=== PATIENT | female | born 1960 | race Caucasian/White ===

== ENCOUNTER 2018-12-23 13:29 | Emergency (ER) | payer OTHER ==
--- OUTSIDE RECORDS SUMMARY | 2018-12-23 13:43 | XMS REPORT | Summary of Care ---
:1960 Author Organization [facility] Address [address] [address] Care Team Providers Name Role Phone None, [place] Primary Care Provider Unavailable Encounter Details Date Type Department Care Team Description 11/08/2018 Hospital Encounter Brian Mckay [facility] Outpatient [address] [address] Allergies Active Allergy Reactions Severity Noted Date Comments Seasonal Other 06/21/2018 Dust mold foods animals Sulfa Antibiotics Rash 06/21/2018 documented as of this encounter (statuses as of 11/10/2018) Medications Medication Sig Dispensed Refills Start Date End Date Status cyclobenzaprine Take 1 Tab by 30 Tab 0 03/30/2018 Active (FLEXERIL) 10 MG Oral mouth THREE TabIndications: Strain of TIMES DAILY neck muscle, initial NEEDED (for encounter neck strain). estradiol (VIVELLE) 0.1 Place 1 Patch 24 Patch 3 06/21/2018 Active MG/24HR Transdermal PATCH onto skin 2 BIWEEKLYIndications: times per week Menopause at bedtime. buPROPion (WELLBUTRIN) 75 Take 1 Tab by 180 Tab 3 06/21/2018 Active MG Oral TabIndications: mouth TWICE Depression, unspecified DAILY. depression type Losartan Potassium 100 MG Take 1 Tab by 90 Tab 3 07/13/2018 Active Oral Tab mouth DAILY. Progesterone Micronized Take by mouth. 0 Active 200 MG Oral Cap documented as of this encounter (statuses as of 11/10/2018) Active Problems No known active problemsdocumented as of this encounter (statuses as of 2018) Immunizations Name Administration Dates Next Due Hepatitis B Vaccine Adult 12/20/2017 Influenza (IM) Preservative Free 12/20/2017 documented as of this encounter Social History Tobacco Use Types Packs/Day Years Used Date Never Smoker Smokeless Tobacco: Never Used Sex Assigned at Date Recorded Not on file Job Start Date Occupation Industry Not on file Not on file Not on file Travel History Travel Start Travel End No recent travel history available. 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 Debbie Calero CRNP [address] [place] [address] [phone] Name Type Priority Associated Diagnoses Date/Time MAMMO SCREENING Imaging Routine Visit for screening 11/08/2018 5:29 PM TOMOSYNTHESIS BILATERAL mammogram EDT Name Type Priority Associated Diagnoses Order Schedule MAMMO SCREENING Imaging Routine Visit for screening 1 Occurrences starting TOMOSYNTHESIS BILATERAL mammogram 11/08/2018 until 11/08/2018 Health Maintenance Due Date Last Done Comments DEPRESSION SCREENING 1974 DIABETES SCREENING 1980 LIPID DISORDER SCREENING 1980 COLONOSCOPY SCREENING 2012 ZOSTER IMMUNIZATION SERIES 2012 (1 of 2) MAMMOGRAM (SCREENING) 11/05/2018 11/05/2017, 11/05/2017, 10/12/2016, Additional history exists INFLUENZA VACCINE (#1) 2018 12/20/2017 PAP SMEAR 06/21/2021 06/21/2018 HEPATITIS C SCREENING Completed 04/13/2018 HIV SCREENING Completed 04/13/2018 HPV IMMUNIZATION SERIES Aged Out No longer eligible based on patient's age to complete this topic MENINGOCOCCAL VACCINE IMM Aged Out No longer eligible based on patient's age to complete this topic PNEUMOCOCCAL 0-64 YRS Aged Out No longer eligible based on patient's age to complete this topic documented as of this encounter Results Not on filedocumented in this encounter Visit Diagnoses Diagnosis Visit for screening mammogram Other screening mammogram documented in this encounter Insurance Payer Benefit Plan / Subscriber ID Effective Dates Phone Address Type Group BCBS N[place] BCBS NATIONAL xxxxxxxxxxxxx 2017-Present Blue Cross/Blue Shield documented as of this encounter
--- OUTSIDE RECORDS SUMMARY | 2018-12-23 13:43 | XMS REPORT | Continuity of Care Document ---
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 Problems Active Problems Provider Date Plantar fascial fibromatosis Santiago Prado MD Onset: 11/11/2018 Social History Type Date Description Comments Sex Unknown ETOH Use Occasionally consumes alcohol Tobacco Use Start: Unknown Patient has never smoked Smoking Status Reviewed: 11/11/18 Patient has never smoked Exercise Type/Frequency Exercises sporadically Allergies, Adverse Reactions, Alerts Active Allergies Reaction Severity Comments Date Sulfa Antibiotics 11/11/2018 Medications Active Medications SIG Qnty Indications Ordering Provider Date Vivelle-Dot Unknown 0.1mg/24HR Patches Biweek Prometrium Unknown 200mg Capsules Losartan Potassium Unknown 100mg Tablets Bupropion HCL Unknown 75mg Tablets Immunizations Description No Information Available Vital Signs Date Vital Result Comment 11/11/2018 3:26pm Height 65 inches 5'5" Weight 163.00 lb Heart Rate 68 /min BP Systolic 130 mmHg BP Diastolic 76 mmHg BMI (Body Mass Index) 27.1 kg/m2 Results Description No Information Available Procedures Description No Information Available Medical Devices Description No Information Available Encounters Type Date Location Provider Dx Diagnosis Office Visit 11/11/2018 [facility] Santiago Prado M72.2 Plantar fascial 3:[facility] fib[facility]atosis Assessments Date Code Description Provider 11/11/2018 [id number] Plantar fascial fibromatosis Santiago Prado MD 08/16/2018 Z02.1 Encounter for pre-employment examination Mau Al MD 08/16/2018 Z02.83 Encounter for blood-alcohol and blood-drug test Mau Al MD Plan of Treatment Future Appointment(s):01/13/2019 3:30 pm - Santiago Prado MD at [facility].11/11/2018 - Santiago Prado, MDM72.2 Plantar fascial fibromatosisNew Therapy:Physical TherapyFollow up:Follow Up: 2 months as needed Functional Status Description No Information Available Mental Status Description No Information Available Referrals Description No Information Available
[2018-12-23 14:06] VITALS: BP 132/86
--- NOTE | 2018-12-23 14:16 | UC ---
Minor Trauma HPI - HPI Summary HPI Summary: SHE slipped on water in the surgical suite and fell onto her right buttock. She caught some of her weight with her right arm. This happened about 1050 this morning. Since that time she's gradually stiffened up and developed pain in her right shoulder. She minimizes it and reports no weakness or deficits. - History of Current Complaint Chief Complaint: UCTrauma Stated Complaint: FELL MINOR TRAUMA TO RIGHT SIDE Time Seen by Provider: 12/23/18 14:07 Hx Obtained From: Patient Onset/Duration: Sudden Onset Onset Of Pain: Immediate Severity Initially: Mild Severity Currently: Moderate Pain Intensity: 5 Mechanism Of Injury: Fall From A Standing Position Aggravating Factor(s): Movement Alleviating Factor(s): Nothing Associated Signs And Symptoms: Negative: Loss Of Consciousness, Ecchymosis, Swelling - Allergies/Home Medications Allergies/Adverse Reactions: Allergies Allergy/AdvReac Type Severity Reaction Status Date / Time Sulfa (Sulfonamide Allergy Rash Verified 12/23/18 13:56 Antibiotics) Home Medications: Home Medications Estradiol [Vivelle-Dot] 1 mg TD 12/23/18 [History] Ibuprofen TAB* [Motrin TAB* 800 MG] 800 mg PO ONCE 12/23/18 [History Confirmed 12/23/18] Losartan TAB* [Cozaar TAB*] 100 mg PO DAILY 12/23/18 [History Confirmed 12/23/18 ] Multivitamin [Multivitamins] 1 cap PO DAILY 12/23/18 [History Confirmed 12/23/18 ] Progesterone, Micronized [Progesterone] 200 mg PO DAILY 12/23/18 [History Confirmed 12/23/18] buPROPion TAB* [Wellbutrin TAB*] 75 mg PO DAILY 12/23/18 [History Confirmed 07/08] PMH/Surg Hx/FS Hx/Imm Hx Previously Healthy: Yes Cardiovascular History: Hypertension - Surgical History Surgical History: Yes Surgery Procedure, Year, and Place: uterine ablation 2009. R varicose vein surgery 2011 - Social History Alcohol Use: Rare Substance Use Type: None Smoking Status (MU): Never Smoked Tobacco Review of Systems All Other Systems Reviewed And Are Negative: Yes Constitutional: Positive: Negative Motor: Positive: Negative Neurovascular: Positive: Negative Musculoskeletal: Positive: Decreased ROM Neurological: Positive: Negative Physical Exam - Summary Physical Exam Summary: She is nontoxic in appearance with stable vitals Triage Information Reviewed: Yes Appearance: Well-Appearing Vital Signs: Initial Vital Signs Temp 97.8 F 12/23/18 13:59 Pulse 64 12/23/18 13:59 Resp 16 12/23/18 13:59 BP 132/86 12/23/18 13:59 Pulse Ox 100 12/23/18 13:59 Vital Signs Reviewed: Yes Eye Exam: Normal ENT Exam: Normal Neck: Positive: Supple, Nontender Respiratory Exam: Normal Respiratory: Positive: Lungs clear, Normal breath sounds, No respiratory distress Cardiovascular: Positive: RRR Abdominal Exam: Normal Musculoskeletal Exam: Other - She is tender in her trapezius area. She is nontender to isolating the supraspinatus. She has full range of motion of the shoulder. Neurological Exam: Normal Psychological Exam: Normal Skin Exam: Normal Minor Trauma Course/Dx - Course Course Of Treatment: I think she is going to be sore. I recommended ibuprofen and rest. She wants to work tomorrow and I think it's okay if she can tolerate it. - Differential Dx/Diagnosis Provider Diagnosis: Right shoulder strain Discharge ED - Sign-Out/Discharge Documenting (check all that apply): Patient Departure All imaging exams completed and their final reports reviewed: No Studies - Discharge Plan Condition: Stable Disposition: HOME Patient Education Materials: Shoulder Sprain (ED) Forms: *Work Release Referrals: No Primary Care Phys,NOPCP [Primary Care Provider] - - Billing Disposition and Condition Condition: STABLE Disposition: Home
== END 2018-12-23 14:20 | disposition home or self-care (01) ==
LOC: UCEAST 13:29
DX: S46.911A Strain of unspecified muscle, fascia and tendon at shoulder and upper arm level, right arm, initial encounter (principal); I10 Essential (primary) hypertension; Z88.2 Allergy status to sulfonamides; Z79.899 Other long term (current) drug therapy; W01.0XXA Fall on same level from slipping, tripping and stumbling without subsequent striking against object, initial encounter; Y92.234 Operating room of hospital as the place of occurrence of the external cause
CPT/HCPCS: 99201; G0463

== ENCOUNTER 2019-01-20 11:59 | Emergency (ER) | payer OTHER ==
--- OUTSIDE RECORDS SUMMARY | 2019-01-20 12:15 | XMS REPORT | Continuity of Care Document ---
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 Problems Active Problems Provider Date Plantar fascial fibromatosis Santiago Prado MD Onset: 11/11/2018 Social History Type Date Description Comments Sex Unknown ETOH Use Occasionally consumes alcohol Tobacco Use Start: Unknown Patient has never smoked Smoking Status Reviewed: 12/27/18 Patient has never smoked Exercise Type/Frequency Exercises sporadically Allergies, Adverse Reactions, Alerts Active Allergies Reaction Severity Comments Date Sulfa Antibiotics 11/11/2018 Medications Active Medications SIG Qnty Indications Ordering Provider Date Diclofenac Sodium take 1 by mouth 30tabs M25.511 Lin Zuniga MD 2018 75mg twice a day as Tablets DR needed for pain Vivelle-Dot Unknown 0.1mg/24HR Patches Biweek Prometrium Unknown 200mg Capsules Losartan Potassium 1 tablet by Unknown mouth daily 100mg Tablets Bupropion HCL 1 tablet by Unknown 75mg mouth daily Tablets Vitamin C ER 1 by mouth every Unknown 500mg day Capsules ER Vitamin D3 one every daily Unknown 125mcg (5000 [address]) Capsules Immunizations Description No Information Available Vital Signs Date Vital Result Comment 12/27/2018 3:46pm Height 65.5 inches 5'5.50" Weight 162.00 lb Heart Rate 64 /min BP Systolic Sitting 134 mmHg BP Diastolic Sitting 86 mmHg Body Temperature 98.9 F Pain Level 7 BMI (Body Mass Index) 26.5 kg/m2 11/11/2018 3:26pm Height 65 inches 5'5" Weight 163.00 lb Heart Rate 68 /min BP Systolic 130 mmHg BP Diastolic 76 mmHg BMI (Body Mass Index) 27.1 kg/m2 Results Description No Information Available Procedures Description No Information Available Medical Devices Description No Information Available Encounters Type Date Location Provider Dx Diagnosis Office Visit 12/27/2018 [facility] Lin Zuniga MD M25.511 Pain in right 3:15p at [place] shoulder M75.41 Impingement syndrome of right shoulder Office Visit 11/11/2018 Diana Prado M72.2 Plantar fascial 3:00p [facility] [place] Assessments Date Code Description Provider 12/27/2018 M25.511 Pain in right shoulder Lin Zuniga MD 12/27/2018 M75.41 Impingement syndrome of right shoulder Lin Zuniga MD 11/11/2018 M72.2 Plantar fascial fibromatosis Santiago Prado MD 08/16/2018 Z02.1 Encounter for pre-employment examination Mau Al MD 08/16/2018 Z02.83 Encounter for blood-alcohol and blood-drug test Mau Al MD Plan of Treatment Future Appointment(s):01/13/2019 3:30 pm - Santiaog Prado MD at [facility] at Kwitjh3612/27/2018 - Lin Zuniga MDM25.511 Pain in right shoulderNew Medication:Diclofenac Sodium 75 mg - take 1 by mouth twice a day as needed for painNew Xrays:Shoulder Right 2+ VWS, Ordered: 12/27/18MRI Shoulder Right W/O, Ordered: 12/27/18New Therapy:Physical KujjellY55.41 Impingement syndrome of right shoulderFollow up:Follow up: after MRI Functional Status Description No Information Available Mental Status Description No Information Available Referrals Description No Information Available
--- OUTSIDE RECORDS SUMMARY | 2019-01-20 12:15 | XMS REPORT | Continuity of Care Document ---
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 Problems Active Problems Provider Date Radiculopathy, cervical region Lin Zuniga MD Onset: 01/17/2019 Sprain of acromioclavicular ligament Lin Zuniga MD Onset: 01/17/2019 Plantar fascial fibromatosis Santiago Prado MD Onset: 11/11/2018 Social History Type Date Description Comments Sex Unknown ETOH Use Occasionally consumes alcohol Tobacco Use Start: Unknown Patient has never smoked Smoking Status Reviewed: 01/17/19 Patient has never smoked Exercise Type/Frequency Exercises [...] Available Vital Signs Date Vital Result Comment 01/17/2019 2:47pm Height 65.5 inches 5'5.50" Weight 165.00 lb Heart Rate 78 /min BP Systolic 144 mmHg BP Diastolic 86 mmHg Respiratory Rate 16 /min Body Temperature 98.5 F Pain Level 5 O2 % BldC Oximetry 98 % BMI (Body Mass Index) 27.0 kg/m2 12/27/2018 3:46pm Height 65.5 inches 5'5.50" Weight 162.00 lb Heart Rate 64 /min BP Systolic Sitting 134 mmHg BP Diastolic Sitting 86 mmHg Body Temperature 98.9 F Pain Level 7 BMI (Body Mass Index) 26.5 kg/m2 Results Description No Information Available Procedures Date Code Description Status 01/17/2019 23175 Inject/Drain Joint/Bursa Major W/O US Completed Medical Devices Description No Information Available Encounters Type Date Location Provider Dx Diagnosis Office Visit 01/17/2019 Diana Zuniga, S43.51xA Sprain of right 2:45p [facility] at acromioclavicular [place] joint, initial encounter M54.12 Radiculopathy, cervical region S43.51xA Sprain of right acromioclavicular joint, initial encounter Office Visit 12/27/2018 3:15p [facility] Lin Zuniga M25.511 Pain in right at [place] shoulder M75.41 Impingement syndrome of right shoulder S43.51xA Sprain of right acromioclavicular joint, initial encounter S43.61xA Sprain of right sternoclavicular joint, initial encounter Office Visit 11/11/2018 Diana Prado M72.2 Plantar fascial 3:00p Orthopedics at fibromatosis [place] Assessments Date Code Description Provider 01/17/2019 S43.51xA Sprain of right acromioclavicular joint, Lin Zuniga MD initial encounter 01/17/2019 M54.12 Radiculopathy, cervical region Lin Zuniga MD 01/17/2019 S43.51xA Sprain of right acromioclavicular joint, Lin Zuniga MD initial encounter 12/27/2018 M25.511 Pain in right shoulder Lin Zuniga MD 12/27/2018 M75.41 Impingement syndrome of right shoulder Lin Zuniga MD 12/27/2018 S43.51xA Sprain of right acromioclavicular joint, Lin Zuniga MD initial encounter 12/27/2018 S43.61xA Sprain of right sternoclavicular joint, initial Lin Zuniga MD encounter 11/11/2018 M72.2 Plantar fascial fibromatosis Santiago Prado MD 08/16/2018 Z02.1 Encounter for pre-employment examination Mau Al MD 08/16/2018 Z02.83 Encounter for blood-alcohol and blood-drug test Mau Al MD Plan of Treatment Future Appointment(s):02/23/2019 2:45 pm - Lin Zuniga MD at [facility] at Vzbbxm4001/17/2019 - EVA Epstein43.51xA Sprain of right acromioclavicular joint, initial encounterNew Therapy:Physical TherapyReferral: Tamra Schumacher MD, Surgery,NeurologicalFollow up:Follow up: 4-5 vobxdS60.12 Radiculopathy, cervical regionNew Therapy:Physical Therapy Functional Status Description No Information Available Mental Status Description No Information Available Referrals Refer to Dr Reason for Referral Status Appt Date Tamra Schumacher MD cervical radiculopathy after injury at Sent 00// [address] [address] [phone]
--- OUTSIDE RECORDS SUMMARY | 2019-01-20 12:15 | XMS REPORT | Continuity of Care Document ---
:1960 External Reference #:[id number] Author Name Eva Valentin NP Address [address] [facility] [place] [address] Care Team Providers Name Role Phone Beverley Adler M.D. 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 Problems Description No Information Available Social History Type Date Description Comments Sex Unknown Tobacco Use Start: Unknown Never Smoked Cigarettes ETOH Use Social Alcohol 0-2 drinks per weekend Exercise Exercises sporadically Type/Frequency Guns in Home Yes, Not Locked Up Smoke Alarms Yes Smoke Alarms Carbon Monoxide Detector: Yes Allergies, Adverse Reactions, Alerts Active Allergies Reaction Severity Comments Date Sulfa 01/12/2019 Medications Active Medications SIG Qnty Indications Ordering Date Provider Chlorthalidone 1 by mouth 90tabs I10 Eva Wasserman 01/12/2019 25mg Tablets every day GRACE Valentin Bupropion HCL 1 by mouth 180tabs F33.0 Eva Wasserman 01/12/2019 75mg Tablets twice daily GRACE Valentin Vivelle-Dot change 2x Unknown 0.1mg/24HR weekly Patches Biweek Prometrium 1 po qhs Unknown 200mg Capsules Immunizations Description No Information Available Vital Signs Date Vital Result Comment 01/12/2019 5:26pm BP Systolic 122 mmHg BP Diastolic 80 mmHg Heart Rate 72 /min Body Temperature 99.0 F Respiratory Rate 16 /min Height 65 inches 5'5" Weight 167.00 lb BMI (Body Mass Index) 27.8 kg/m2 Results Description No Information Available Procedures Date Code Description Status 10/20/2018 [id number] Mammogram Completed Medical Devices Description No Information Available Encounters Description No Information Available Assessments Date Code Description Provider 01/12/2019 I10 Essential (primary) hypertension Eva Valentin NP 01/12/2019 F33.0 Major depressive disorder, recurrent, mild Eva Valentin NP 01/12/2019 N95.1 Menopausal and female climacteric states Eva Valentin NP Plan of Treatment Future Appointment(s):02/09/2019 3:30 pm - Eva Valentin NP at [facility] Ikoytg7401/12/2019 - Eva Valentin NPI10 Essential (primary) hypertensionNew Medication:Chlorthalidone 25 mg - 1 by mouth every dayNew Labs:TSH ([facility]/ [facility]), Ordered: 01/12/19Basic Metabolic-[facility], Ordered: Comments:Call or return to the office if:* you get more than one blood pressure reading above 160/100 (even if only one of the numbers is high)* you feel close to passing out or actually pass out* you have new or worsening swelling in the ankles, legs, hands, or face* you develop palpiatations or funny cykussvxujY25.0 Major depressive disorder, recurrent, mildNew Medication: Bupropion HCL 75 mg - 1 by mouth twice dailyComments:I think it would be find to try to discontinue this medication, but I think it is best to wait untilspring.N95.1 Menopausal and female climacteric statesAllComments:1. Patient has been queried about patient's goals/preferences and functional/ lifestyle goals at relevant visits. If relevant, describe: Has been discussed, noted above2. Treatment goals as explainedto the patient: see above3. Are there barriers to meeting treatment goals? Yes If Yes, please describe: Barriers include possible insurance limits, disease process, and difficulty with lifestyle changes4. Self-Management goals as described to the patient: Yes , see above As always, we strongly encourage a healthy diet and making physical activity a part of your every day life. If you have questions about how or where to start, please contact the office. Functional Status Description No Information Available Mental Status Description No Information Available Referrals Description No Information Available
--- NOTE | 2019-01-20 15:11 | ED ---
Hypertension - HPI Summary HPI Summary: 58 year old female presents to [facility] with a chief complaint of hypertension starting 5 days ago. Patient reports falling down on her right side on 12/23/18, fracturing her clavicle and hurting her C-spine. She was treated for the fracture but the pain lingered, and 5 days ago she went to her PCP, who gave her a cortisone shot. 30 minutes after the cortisone shot, she experienced the "most painful headache of her life". When she got home she measured her bp, it was 198/110. Her head was in so much throbbing pain she could not open her eyes. Patient reports constant headache, shoulder pain, nausea, chest pain, and weakness in her right arm. She has frequent intermittent bouts of high blood pressure. No history of tobacco use, recreational drug use. She occasionally drinks alcohol. Medications reviewed. Allergies noted. - History of Current Complaint Chief Complaint: EDHypertension Stated Complaint: HYPERTENTION,HEACHACHE, PAIN PER PT Time Seen by Provider: 01/20/19 14:54 Hx Obtained From: Patient Onset/Duration: Started Days Ago, Still Present Timing: Intermittent Aggravating Factor(s): Nothing Associated Signs & Symptoms: Chest Pain, Headaches, Weakness - arm, Pain - shoulder pain, Other: - nausea - Allergies/Home Medications Allergies/Adverse Reactions: Allergies Allergy/AdvReac Type Severity Reaction Status Date / Time cortisone Allergy Unknown Verified 01/20/19 12:08 Reaction Details Sulfa (Sulfonamide AdvReac Rash Verified 01/20/19 12:03 Antibiotics) PMH/Surg Hx/FS Hx/Imm Hx Endocrine/Hematology History: Denies: Hx Diabetes Cardiovascular History: Reports: Hx Hypertension Denies: Hx Pacemaker/ICD History: Denies: Hx Renal Disease Sensory History: Denies: Hx Hearing Aid Psychiatric History: Denies: Hx Panic Disorder - Surgical History Surgery Procedure, Year, and Place: uterine ablation 2009. R varicose vein surgery 2012. RIGHT BREAST BIOPSY 2014. WISDOM TEETH Infectious Disease History: No Infectious Disease History: Denies: Traveled Outside the [place] in Last 30 Days - Social History Alcohol Use: Rare Substance Use Type: Reports: None Smoking Status (MU): Never Smoked Tobacco Review of Systems Positive: Chest Pain Positive: Nausea Positive: Arthralgia - shoulder Positive: Weakness All Other Systems Reviewed And Are Negative: Yes Physical Exam - Summary Physical Exam Summary: Constitutional: Well-developed, Well-nourished, Alert. (-) Distressed Skin: Warm, Dry HENT: Normocephalic; Atraumatic Eyes: Conjunctiva normal Neck: Musculoskeletal ROM normal neck. (-) JVD, (-) Stridor, (-) Tracheal deviation Cardio: Rhythm regular, rate normal, Heart sounds normal; Intact distal pulses; Radial pulses are 2+ and symmetric. (-) Murmur Pulmonary/Chest wall: Effort normal. (-) Respiratory distress, (-) Wheezes, (-) Rales Abd: Soft, (-) tenderness, (-) Distension, (-) Guarding, (-) Rebound Musculoskeletal: (-) Edema Lymph: (-) Cervical adenopathy Neuro: Alert, Oriented x3 Psych: Mood and affect Normal Triage Information Reviewed: Yes Vital Signs On Initial Exam: Initial Vitals Temp Pulse Resp BP Pulse Ox 98.7 F 91 20 185/102 99 01/20/19 12:03 01/20/19 12:03 01/20/19 12:03 01/20/19 12:03 01/20/19 12:03 Vital Signs Reviewed: Yes Procedures - Sedation Patient Received Moderate/Deep Sedation with Procedure: No Diagnostics - Vital Signs Vital Signs Temp Pulse Resp BP Pulse Ox 01/20/19 14:23 99 F 82 20 156/90 97 01/20/19 12:09 191/110 01/20/19 12:03 98.7 F 91 20 185/102 99 - Laboratory Lab Statement: Any lab studies that have been ordered have been reviewed, and results considered in the medical decision making process. Hypertension Course/Dx - Course Course Of Treatment: Patient is here with a headache that started after receiving a intra-articular steroid injection. Patient's symptoms have overall improved since starting. Patient has a normal neurologic exam with an H&H stroke scale is 0. Patient was having a subarachnoid hemorrhage and she did not CT scan. Patient was offered medications but did not want them as she had to drive back to [place]. Patient was mildly hypertensive so she was encouraged to double her chlorthalidone until being seen by her PCP next week. Patient is discharged with Fioricet for her headache. - Diagnoses Provider Diagnoses: Headache, Hypertension Discharge ED - Sign-Out/Discharge Documenting (check all that apply): Patient Departure - discharge - Discharge Plan Condition: Stable Disposition: HOME Prescriptions: Butalb/Acetamin/Caff TAB* [Fioricet TAB*] 1 tab PO Q6H PRN #12 tab MDD 4 tablets PRN Reason: Headache Butalb/Acetamin/Caff TAB* [Fioricet TAB*] 1 tab PO Q6H PRN #12 tab MDD 4 tablets PRN Reason: Headache Patient Education Materials: Hypertension (ED) Referrals: Beverley Adler MD [Primary Care Provider] - Additional Instructions: Follow up with your primary care provider on Wednesday. Increase Clorthalidone to 2 tablets once a day until Wednesday. Return to the ED if you experience worsened symptoms or slurred speech. - Billing Disposition and Condition Condition: STABLE Disposition: Home - Attestation Statements Document Initiated by Dickson: Yes Documenting Scribe: Kvng Lindsey Provider For Whom Dickson is Documenting (Include Credential): Freddy Izaguirre MD Scribe Attestation: Kvng Romero, scribed for Freddy Izaguirre MD on 01/20/19 at 1956. Scribe Documentation Reviewed: Yes Provider Attestation: The documentation as recorded by the Kvng patterson accurately reflects the service I personally performed and the decisions made by , Freddy Izaguirre MD Status of Scribe Document: Viewed
[2019-01-20 15:26] VITALS: BP 177/94
== END 2019-01-20 15:30 | disposition home or self-care (01) ==
LOC: ED 11:59
DX: I10 Essential (primary) hypertension (principal); Z88.2 Allergy status to sulfonamides; Z88.8 Allergy status to other drugs, medicaments and biological substances
CPT/HCPCS: 99282